=== PATIENT | female | born 1995 | race Two or more races ===

== ENCOUNTER 2024-04-07 10:55 | Observation (INO) | payer BC ==
[~2024-04-07] VITALS: Ht 152.4 cm; Wt 72.6 kg
[2024-04-07 11:53] LABS: Fern Testing Negative
[2024-04-07 12:16] LABS: Urine Bacteria FEW /hpf (None Seen); Urine Blood Negative /uL (Negative); Urine Clarity Turbid (Clear); Urine Color Yellow (Yellow); Urine Hyaline Cast FEW /lpf (0 - 2); Urine Mucus FEW (None Seen); Urine Protein, UAD 1+ (Negative); Urine Specific Gravity 1.024 (1.001-1.035); Urine Urobilinogen 2 mg/dL (Negative); Urine WBC 7 /hpf (0 - 5); Urine pH 6.5 (5.0-9.0)
[2024-04-07 12:45] LABS: Vaginal Trichomonas Not Present
[2024-04-07 12:46] LABS: Vaginal Bacteria None Seen; Vaginal Clue Cells None Seen; Vaginal Epithelial Cells None Seen
[2024-04-07] MEDS ORDERED: MICO1KIT6 VA (13:16)
== END 2024-04-07 13:25 | disposition home or self-care (01) ==
LOC: LDRP 10:55 → UNDOADMOB 10:55 → LDRP 11:08 → UNDODISOB 13:25
PROVIDERS: ADMIT Obstetrics & Gynecology; ATTEND Obstetrics & Gynecology
DX: O98.813 Other maternal infectious and parasitic diseases complicating pregnancy, third trimester (principal); B37.31 Acute candidiasis of vulva and vagina; O42.913 Preterm premature rupture of membranes, unspecified as to length of time between rupture and onset of labor, third trimester; O26.893 Other specified pregnancy related conditions, third trimester; N89.8 Other specified noninflammatory disorders of vagina; Z3A.36 36 weeks gestation of pregnancy; Z88.0 Allergy status to penicillin
CPT/HCPCS: 59025; 81001; 87210; 94760; G0378; Q0114

== ENCOUNTER 2024-04-20 11:52 | Observation (INO) | payer BC ==
[~2024-04-20 11:52] MED LIST: MICO1KIT6 VA
[2024-04-20] MEDS ORDERED: PREN1TAB71 OR (12:06)
[2024-04-20 13:37] LABS: Fern Testing Negative
== END 2024-04-20 14:19 | disposition home or self-care (01) ==
LOC: LDRP 11:52
PROVIDERS: ADMIT Obstetrics & Gynecology; ATTEND Obstetrics & Gynecology
DX: O36.8330 Maternal care for abnormalities of the fetal heart rate or rhythm, third trimester, not applicable or unspecified (principal); Z3A.38 38 weeks gestation of pregnancy; Z79.899 Other long term (current) drug therapy
CPT/HCPCS: 59025; 81002; 84112; G0378; Q0114

== ENCOUNTER 2024-04-28 00:07 | Inpatient (IN) | payer BC, MEDICAID ==
[~2024-04-28] VITALS: Ht 152.4 cm; Wt 81.6 kg
[~2024-04-28 00:07] MED LIST changes: +PREN1TAB71 OR
[2024-04-28 01:47] LABS: Fern Testing Negative
[2024-04-28] MEDS ORDERED: NALBUPHINE HCL 10 MG/1ml INJECTION IV PRN (02:15)
[2024-04-28] MEDS ORDERED: LIDOCAINE 2%HCL (LOCAL ANESTH.) INJ 20ML MDV IJ PRN (02:15)
[2024-04-28] MEDS ORDERED: NALBUPHINE HCL 10 MG/1ml INJECTION IM PRN (02:15)
[2024-04-28] MEDS: LACTATED RINGER'S 1,000 ML IV SCH (02:15)
[2024-04-28] MEDS: CLINDAMYCIN 900MG IV 50 ML IV SCH (03:17)
[2024-04-28] MEDS: PHISODERM TOP SOLN 240ML BTL TOP PRN (03:22)
[2024-04-28] MEDS: WITCH HAZEL-GLYCERIN PAD TOP PRN (03:23)
[2024-04-28] MEDS: DERMOPLAST 60ML BOTTLE TOP PRN (03:23)
[2024-04-28] MEDS: miSOPROStol 50 MCG per PRE-CUT 1/2 TAB PO PRN (04:18)
[2024-04-28 04:23] LABS: Alanine Aminotransferase 22 U/L (7-40); Alkaline Phosphatase 195 U/L (46-116); Anion Gap 9 (5-15); Aspartate Aminotransferase 14 U/L (13-40); Calcium 9.2 mg/dL (8.7-10.4); Carbon Dioxide 22 mmol/L (20-31); Chloride 107 mmol/L (98-107); Glucose 83 mg/dL (74-106); Potassium 3.8 mmol/L (3.5-5.1); Sodium 138 mmol/L (136-145)
[2024-04-28 04:24] LABS: Bilirubin, Total 0.8 mg/dL (0.2-1.0); Total Protein 6.3 g/dL (5.7-8.2)
[2024-04-28 04:31] LABS: BUN/Creatinine Ratio 8.2 (10.0-20.0); Blood Urea Nitrogen < 5 mg/dL (9-23)
[2024-04-28 04:34] LABS: Basophils # (auto) 0 10 ^3/uL (0-0.2); Eosinophils # (auto) 0.1 10 ^3/uL (0-0.8); Eosinophils % (auto) 0.6 % (0.0-7.0); Monocytes # (auto) 0.5 10 ^3/uL (0-1.3); Neutrophils # (auto) 8.1 10 ^3/uL (1.6-8.6); Neutrophils % (auto) 75.5 % (37.0-80.0); Red Blood Cells 3.74 10^6/uL (4.0-5.20); White Blood Cell 10.7 10^3/uL (4.4-10.8)
[2024-04-28 04:36] LABS: Basophils % (auto) 0.3 % (0.0-2.0); Hematocrit 29.2 % (36.0-46.0); Hemoglobin 9.6 g/dL (12.2-16.2); Mean Corpuscular Hemoglobin 25.7 pg (28.0-32.0); Monocytes % (auto) 4.6 % (0.0-12.0); Platelet Count (auto) 255 10^3/uL (140-450); Red Cell Distribution Width 16.2 % (11.8-14.3)
[2024-04-28 04:59] LABS: INR 0.92 (0.9-1.15); Partial Thromboplastin Time 25.6 SEC (24.5-34.5); Prothrombin Time 9.8 sec (9.3-11.8)
[2024-04-28] MEDS: ROPIVACAINE HCL 200 ML ONE (07:18)
[2024-04-28 07:27] LABS: Urine Bacteria None Seen /hpf (None Seen)
[2024-04-28 07:59] LABS: Urine Blood Negative /uL (Negative); Urine Clarity Clear (Clear); Urine Color Light-Yellow (Yellow); Urine Protein, UAD Negative (Negative); Urine Specific Gravity 1.013 (1.001-1.035); Urine Urobilinogen Normal (Negative); Urine WBC 4 /hpf (0 - 5); Urine pH 6.5 (5.0-9.0)
[2024-04-28] MEDS ORDERED: MINERAL OIL TOPICAL 10ml TOP ONE (08:09)
[2024-04-28 08:13] LABS: Amphetamine Screen, Urine Neg (NEGATIVE); Barbiturate Scree,Urine Neg (NEGATIVE); Benzodiazephine Screen, Urine Neg (NEGATIVE); Cannabinoid Screen, Urine Neg (NEGATIVE); Cocaine Screen, Urine Neg (NEGATIVE); Opiate Scree,Urine Neg (NEGATIVE); Phencyclidine Screen, Urine Neg (NEGATIVE)
[2024-04-28] MEDS ORDERED: ONDANSETRON ODT 4 MG TAB PO PRN (09:30)
[2024-04-28] MEDS: ePHEDrine SULFATE 50 MG/ML AMP IV ONE (11:00)
[2024-04-28] MEDS: IBUPROFEN 600 MG TAB PO PRN (11:28)
[2024-04-28 15:00] VITALS: BP 94/63; PULSE 108; RESP 18; TEMP 98.9; O2SAT 98
[2024-04-28] MEDS: ACETAMINOPHEN 325 MG TAB PO PRN (16:56)
[2024-04-28 19:00] VITALS: BP 90/61; PULSE 104; RESP 20; TEMP 98.3; O2SAT 97
[2024-04-28] MEDS: METHYLERGONOVINE MALEATE 0.2 MG/ML AMP IM ONE (19:11)
[2024-04-28] MEDS: LACT. RINGERS/OXYTOCIN 20UNITS 500 ML IV ONE ×2 (19:12)
[2024-04-28] MEDS: DOCUSATE SOD 100 MG CAP PO SCH (22:29)
[2024-04-28 23:00] VITALS: BP 97/59; PULSE 94; RESP 18; TEMP 97.8; O2SAT 97
[2024-04-28] MEDS ORDERED: IBU600T PO (23:18)
[2024-04-28] MEDS ORDERED: DOCU-265 PO (23:18)
[2024-04-28] MEDS ORDERED: FERRCAP PO (23:18)
[2024-04-28] MEDS ORDERED: PREN1TAB71 PO (23:18)
[2024-04-29 03:00] VITALS: BP 101/63; PULSE 97; RESP 18; TEMP 97.8; O2SAT 98
[2024-04-29 07:00] VITALS: BP 92/64; PULSE 95; PULSE 97; RESP 18; TEMP 97.5; O2SAT 98
[2024-04-29] MEDS ORDERED: PRENATAL VITAMIN TAB PO ONE (07:00)
[2024-04-29 07:38] LABS: Basophils # (auto) 0 10 ^3/uL (0-0.2); Basophils % (auto) 0.2 % (0.0-2.0); Eosinophils # (auto) 0.1 10 ^3/uL (0-0.8); Hematocrit 24.2 % (36.0-46.0); Hemoglobin 7.9 g/dL (12.2-16.2); Lymphocytes # (auto) 1.9 10 ^3/uL (0.4-5.4); Mean Corpuscular Hemoglobin 25.2 pg (28.0-32.0); Mean Corpuscular Hgb Conc. 32.7 g/dL (32.0-36.0); Mean Corpuscular Volume 77.2 fL (80.0-100.0); Monocytes # (auto) 0.8 10 ^3/uL (0-1.3); Monocytes % (auto) 6.1 % (0.0-12.0); Neutrophils % (auto) 77.7 % (37.0-80.0); Platelet Count (auto) 219 10^3/uL (140-450); Red Blood Cells 3.13 10^6/uL (4.0-5.20); Red Cell Distribution Width 16.2 % (11.8-14.3); White Blood Cell 12.9 10^3/uL (4.4-10.8)
[2024-04-29 08:06] LABS: RPR Non Reactive (Non Reactive)
[2024-04-29 11:00] VITALS: BP 98/66; PULSE 97; RESP 18; TEMP 97.7; O2SAT 98
[2024-04-29 15:00] VITALS: BP 94/51; PULSE 91; RESP 18; TEMP 97.9; O2SAT 98
[2024-04-29 19:20] VITALS: BP 99/57; PULSE 85; RESP 16; TEMP 97.9; O2SAT 97
[2024-04-29] MEDS: FERROUS SULFATE 325mg EC TAB PO ONE (21:18)
[2024-04-29 23:00] VITALS: BP 122/79; PULSE 91; RESP 18; TEMP 97.8; O2SAT 97
[2024-04-30 03:15] VITALS: BP 96/51; PULSE 74; RESP 16; TEMP 97.7; O2SAT 97
[2024-04-30 07:20] VITALS: BP 92/56; PULSE 95; RESP 16; TEMP 97.8; O2SAT 97
[2024-04-30 11:00] VITALS: BP 101/58; PULSE 96; RESP 16; TEMP 98.4; O2SAT 96
== END 2024-04-30 14:45 | disposition home or self-care (01) | DRG 807 ==
LOC: EDLOC 00:07 → LDRP 00:07 → NUR 00:07 → UNDOADMOB 00:07 → LDRP 01:52 → OBSVTOIN 01:52 → NUR 01:52 → LDRP 01:53
PROVIDERS: ADMIT Obstetrics & Gynecology; ATTEND Obstetrics & Gynecology
PROC: 10E0XZZ Delivery of Products of Conception, External Approach (ICD-10-PCS; principal; 2024-04-28)
PROC: 3E0R3BZ Introduction of Anesthetic Agent into Spinal Canal, Percutaneous Approach (ICD-10-PCS; 2024-04-28)
PROC: 00HU33Z Insertion of Infusion Device into Spinal Canal, Percutaneous Approach (ICD-10-PCS; 2024-04-28)
DX: O90.81 Anemia of the puerperium (principal); Z37.0 Single live birth; Z3A.39 39 weeks gestation of pregnancy
CPT/HCPCS: 36415; 59025; 59409; 76815; 80053; 80307; 81001; 81002; 84112; 85025; 85610; 85730; 86592; 86803; 86850; 86900; 86901; 94760; 94762; 96360; 96361; 96365; 96366; 96372; G0378; J2590; J3490

== ENCOUNTER 2024-06-23 19:59 | Emergency (ER) | payer BC, MEDICAID ==
[~2024-06-23] VITALS: Ht 152.4 cm; Wt 68.2 kg
[~2024-06-23 19:59] MED LIST changes: +DOCU-265 PO; +FERRCAP PO; +IBU600T PO; -MICO1KIT6 VA; -PREN1TAB71 OR; +PREN1TAB71 PO
--- NOTE | 2024-06-23 20:12 | ED.PDOC ---
History of Present Illness HPI Comments 28-year-old female with no PMHx or PSHx presents with a chief complaint of abdominal pain x 1 month s/p giving x 2 months ago with associated vaginal discharge, burning, nausea, and back pain. Patient states that her pain is localized to her suprapubic and vaginal area, describes as cramping, and states that it has been present for the past x 1 month. Patient denies any injuries or trauma prior to onset of symptoms beginning. Patient denies any vomiting, diarrhea, or abnormal vaginal bleeding. No other symptoms or modifying factors present at this time. Time Seen by MD: 20:04 Reviewed Notes: Medications, Allergies Allergies: Coded Allergies: Amoxicillin (Verified Allergy, Unknown, 04/07/24) Penicillins (Verified Allergy, Unknown, 04/07/24) Home Meds Active Scripts Nitrofurantoin Monohydrate Mac (Macrobid) 100 Mg Cap, 100 MG PO BID for 5 Days, #9 CAP Prov:POONAM SR MD 06/23/24 Ferrous Fumarate W/ B12-Vit C- (Tricon) Cap, 1 CAP PO DAILY for 90 Days, #90 CAP 2 Refills Prov:KHAIMJRONYJ CARLOS [facility] 04/28/24 Ibuprofen Micronized (MOTRIN TABLET) 600 Mg Tb, 600 MG PO Q6HP PRN for 20 Days, #80 TAB Prov:MELISSA RUVALCABA [facility] 04/28/24 Docusate Sodium (Docusate Sodium) 100 Mg Cap, 200 MG PO HS PRN for 30 Days, #60 CAP 2 Refills Prov:MELISSA RUVALCABA [facility] 04/28/24 Vit W/ Ferrous Fumara (PNV PLUS MULTIVI) Plus Tab, 1 TAB PO DAILY for 90 Days, #90 TAB 3 Refills Prov:MELISSA RUVALCABA [facility] 04/28/24 Information Source: Patient Mode of Arrival: Ambulatory Severity: Moderate Timing: Months Duration: Since onset Prehospital treatment: None Vital Signs Vital Signs Date Time Temp Pulse Resp B/P (MAP) Pulse Ox O2 Delivery O2 Flow Rate FiO2 06/23/24 23:42 98.7 06/23/24 22:43 80 16 97 Room Air* 0 21 06/23/24 22:43 137/87 (104) Physical Exam General: Awake, alert and oriented. No acute distress. Skin: Skin in warm, dry and intact. Appropriate color for ethnicity. Nailbeds pink with no cyanosis. HEENT: The head is normocephalic and atraumatic. Conjunctivae are clear without exudates or hemorrhage. Sclera is non-icteric. EOM are intact. No signs of nystagmus. Eyelids are normal in appearance without swelling or lesions. Oral mucosa is pink and moist Neck: The neck is supple with normal range of motion. No JVD. Cardiac: Heart rate and rhythm are normal. No murmurs, gallops, or rubs are auscultated. Respiratory: No signs of respiratory distress. Lung sounds are clear in all lobes bilaterally without rales, ronchi, or wheezes. Abdominal: Abdomen is soft, positive suprapubic tendernessr without distention. No guarding or rigidity Bowel sounds are present and normoactive in all four quadrants. Extremities: Upper and lower extremities are atraumatic in appearance without deformity or edema. Neurological: The patient is awake, alert and oriented to person, place, and time with normal speech. Speech is clear. There is no facial asymmetry. Psychiatric: Appropriate mood and affect. Good judgement and insight. No visual or auditory hallucinations. Review of Systems: REVIEW OF SYSTEMS: No fever, no chills, or fatigue HEENT: No sore throat, no earache, no congestion, no neck pain. Cardiac: No chest pain. No palpitations. Lungs: No shortness of breath, no cough. GI: Positive nausea, positive vomiting, positive diarrhea, no constipation, positive abdominal pain, lower pelvic pain. No blood in stool or vomitus : Positive dysuria, frequency, or urgency. No hematuria. Positive vaginal discharge, yellowish. No odor. Musculoskeletal: Positive low back pain. No joint pain , no joint swelling, no extremity edema. Skin: No rash, no itching. Neuro: No headache, no dizziness, no weakness Past Medical History PAST MEDICAL HISTORY: Denies Surgical History: Denies all surgeries CLIENT APPLICATION SUPPORT SPECIALIST History: Denies all CLIENT APPLICATION SUPPORT SPECIALIST Hx Family History Family History: Reviewed,noncontributory to illness Social History Smoker: Non-Smoker Alcohol: Denies ETOH Use Drugs: Denies Drug Use Lives In: Home Was a procedure done? Was a procedure done?: No Differential Dx Considerations may include: Differential diagnoses considered include: Abdominal aortic aneurysm, AK, esophageal rupture, intestinal obstruction, mesenteric ischemia, perforated viscus or solid organ rupture, CHF with hepatomegaly, pneumonia, abscess, appendicitis, biliary disease, diverticulitis, gastritis, gastroenteritis, hepatitis, hernia, inflammatory bowel disease, pancreatitis, peptic ulcer disease, ureteral colic, constipation, GERD, irritable syndrome, abdominal wall pain, nonspecific abdominal pain, herpes zoster. Also ruptured ectopic , ovarian torsion/cyst, tubo-ovarian abscess, PID, endometriosis, mittleschmerz. X-Ray, Labs, Meds, VS Vital Signs Date Time Temp Pulse Resp B/P (MAP) Pulse Ox O2 Delivery O2 Flow Rate FiO2 06/23/24 23:42 98.7 06/23/24 22:43 80 16 97 Room Air* 0 21 06/23/24 22:43 97.9 80 16 137/87 (104) 97 97.9 06/23/24 21:05 98.1 78 18 107/77 (87) 97 Lab Test 06/23/24 21:33 06/23/24 21:31 06/23/24 20:49 Range/Units Chlamydia trachomatis (DONY) Pending Neisseria gonorrhoeae (DONY) Pending Urine Color Light-yellow Yellow Urine Clarity Clear Clear Urine pH 6.5 5.0-9.0 Urine Specific [place] 1.029 1.001-1.035 Urine Protein Negative Negative Urine Ketones Negative Negative Urine Blood Negative Negative /uL Urine Nitrite Negative Negative Urine Bilirubin Negative Negative Urine Urobilinogen Normal Negative mg/dL Urine Leukocyte Esterase 1+ Negative /uL Urine RBC 1 0 - 4 /hpf Urine WBC 8 0 - 5 /hpf Urine Squamous Epithelial Cells Few <5 /hpf Urine Bacteria Few H None Seen /hpf Urine Mucus Few None Seen Urine Glucose Normal Normal mg/dL White Blood Count 6.6 4.4-10.8 10^3/uL Red Blood Count 4.61 4.0-5.20 10^6/uL Hemoglobin 10.8 L 12.2-16.2 g/dL Hematocrit 34.4 L 36.0-46.0 % Mean Corpuscular Volume 74.7 L 80.0-100.0 fL Mean Corpuscular Hemoglobin 23.4 L 28.0-32.0 pg Mean Corpuscular Hemoglobin Concent 31.3 L 32.0-36.0 g/dL Red Cell Distribution Width 17.9 H 11.8-14.3 % Platelet Count 293 140-450 10^3/uL Mean Platelet Volume 8.4 6.9-10.8 fL Neutrophils (%) (Auto) 55.8 37.0-80.0 % Lymphocytes (%) (Auto) 33.8 10.0-50.0 % Monocytes (%) (Auto) 6.2 0.0-12.0 % Eosinophils (%) (Auto) 3.8 0.0-7.0 % Basophils (%) (Auto) 0.4 0.0-2.0 % Neutrophils # (Auto) 3.7 1.6-8.6 10 ^3/uL Lymphocytes # (Auto) 2.2 0.4-5.4 10 ^3/uL Monocytes # (Auto) 0.4 0-1.3 10 ^3/uL Eosinophils # (Auto) 0.2 0-0.8 10 ^3/uL Basophils # (Auto) 0 0-0.2 10 ^3/uL Nucleated Red Blood Cells 0.1 % Sodium Level 142 136-145 mmol/L Potassium Level 3.7 3.5-5.1 mmol/L Chloride Level 106 98-107 mmol/L Carbon Dioxide Level 29 20-31 mmol/L Anion Gap 7 5-15 Blood Urea Nitrogen 14 9-23 mg/dL Creatinine 0.80 0.550-1.02 mg/dL Glomerular Filtration Rate Calc 102 >90 mL/min BUN/Creatinine Ratio 17.5 10.0-20.0 Serum Glucose 85 74-106 mg/dL Calcium Level 10.3 8.7-10.4 mg/dL Total Bilirubin 0.7 0.2-1.0 mg/dL Aspartate Amino Transferase (AST) 64 H 13-40 U/L Alanine Aminotransferase (ALT) 144 H 7-40 U/L Alkaline Phosphatase 139 H 46-116 U/L C-Reactive Protein High Sensitivity 0.17 <1.0 mg/dL Total Protein 7.3 5.7-8.2 g/dL Albumin 4.7 3.2-4.8 g/dL Lipase 45 12-53 U/L Beta HCG, Quantitative 1.6 1.5-4.2 mIU/mL Current Medications Medications (Trade) Dose Ordered Sig/Godwin Route Start Time Stop Time Status Last Admin Ondansetron HCl (Zofran Po) 4 mg ONCE ONCE PO 06/23/24 20:15 06/23/24 20:16 DC 06/23/24 23:44 Acetaminophen (Tylenol Tablet) 1,000 mg ONCE ONCE PO 06/23/24 20:15 06/23/24 20:16 DC 06/23/24 23:42 Fluconazole (Diflucan Tablet) 200 mg ONCE ONCE PO 06/23/24 23:45 06/23/24 23:46 DC 06/23/24 23:48 Nitrofurantoin Macrocrystals (Macrobid) 100 mg ONCE ONCE PO 06/23/24 23:45 06/23/24 23:46 DC 06/23/24 23:48 Time of 1ST Reevaluation: 20:34 Reevaluation 1ST: Unchanged Patient Education/Counseling: Diagnosis, Treatment, Prognosis Family Education/Counseling: No Family Present Departure 1 Departure Time of Disposition: 23:39 Impression: Primary Impression: Abdominal pain Additional Impressions: UTI (urinary tract infection) Elevated liver enzymes Hepatic steatosis Disposition: HOME / SELF CARE / HOMELESS Condition: Good Additional Instructions: ED DISCHARGE INSTRUCTIONS Instructions: Please read all instructions provided in this packet carefully. Although you have been discharged from the Emergency Department, this does not mean that you have a "clean bill of health". No definitive diagnosis for your symptoms has been made today. It is possible that you are in the process of developing a serious illness. This is why you must return to the ED without fail if any new or worsening symptoms (especially if your symptoms include chest p ain, trouble breathing, abdominal pain, fever, headache, confusion, trouble seeing, or trouble walking) It is also very important that you see a primary care doctor within the next 3-5 days to follow up. Follow up with your primary provider about the following abnormal findings. Your blood work showed elevated Liver function tests today. Your CT scan showed IMPRESSION: 1. Minimal wall thickening of the distal sigmoid colon may reflect underdistention or mild colitis. 2. Hepatic steatosis. If you are unable to get an appointment, return to the ED for re-evaluation. Abdominal Pain: Care Instructions Overview Abdominal pain has many possible causes. Some aren't serious and get better on their own in a few days. Others need more testing and treatment. If your pain continues or gets worse, you need to be rechecked and may need more tests to find out what is wrong. You may need surgery to correct the problem. Don't ignore new symptoms, such as fever, nausea and vomiting, urination problems, pain that gets worse, and dizziness. These may be signs of a more serious problem. If you are not getting better, you may need more tests or treatment. The doctor has checked you carefully, but problems can develop later. If you notice any problems or new symptoms, get medical treatment right away. Follow-up care is a keller part of your treatment and safety. Be sure to make and go to all appointments, and call your doctor if you are having problems. It's also a good idea to know your test results and keep a list of the medicines you take. How can you care for yourself at home? Rest until you feel better. To prevent dehydration, drink plenty of fluids. Choose water and other clear liquids until you feel better. If you have kidney, heart, or liver disease and have to limit fluids, talk with your doctor before you increase the amount of fluids you drink. When you feel like eating, start with small amounts. Do not have alcohol, caffeine, or spicy, hot, or high-fat foods for a day or two. Avoid anti-inflammatory medicines such as aspirin, ibuprofen (Advil, Motrin), and naproxen (Aleve). These can cause stomach upset. Talk to your doctor if you take daily aspirin for another health problem. When should you call for help? Call 911 anytime you think you may need emergency care. For example, call if: You passed out (lost consciousness). You pass maroon or very bloody stools. You vomit blood or what looks like coffee grounds. You have severe belly pain. Call your doctor now or seek immediate medical care if: Your pain gets worse, especially if it becomes focused in one area of your belly. You have a new or higher fever. Your stools are black and look like tar, or they have streaks of blood. You have unexpected vaginal bleeding. You have symptoms of a urinary tract infection. These may include: Pain when you urinate. Urinating more often than usual. Blood in your urine. You are dizzy or lightheaded, or you feel like you may faint. Watch closely for changes in your health, and be sure to contact your doctor if: You are not getting better as expected. Credits for Abdominal Pain: Care Instructions Current as of: May 09, 2023 Author: [employer] Clinical Review Board All [employer] education is reviewed by a team that includes physicians, nurses, advanced practitioners, registered dieticians, and other healthcare professionals. LIVER FUNCTION TESTS EDUCATION: What does it mean to have elevated liver enzymes? If you have high levels of liver enzymes in your blood, you have elevated liver enzymes. High liver enzyme levels may be temporary, or they may be a sign of a medical condition like hepatitis or liver disease. Certain medications can also cause elevated liver enzymes. What are liver enzymes? Liver enzymes are proteins that speed up chemical reactions in your body. These chemical reactions include producing bile and substances that help your blood clot, breaking down food and toxins, and fighting infection. Common liver enzymes include: Alkaline phosphatase (ALP). Alanine transaminase (ALT). Aspartate transaminase (AST). Gamma-glutamyl transferase (GGT). If your liver is injured, it releases enzymes into your bloodstream (most commo nly ALT or AST). Why does a healthcare provider check liver enzymes? Your healthcare provider may check your liver enzyme levels with a liver function test (LFT) or liver panel. A liver function test is a type of blood test. Your provider may order an LFT during a regular checkup if youre at risk for liver injury or disease or if you have symptoms of liver damage. Possible Causes What causes elevated liver enzymes? Liver diseases, medical conditions, medications and infections can cause elevated liver enzymes. What are the risk factors for elevated liver enzymes? Factors that put you at risk for elevated liver enzymes include: Alcohol use. Certain medications, herbs and vitamin supplements. Diabetes. Family history of liver disease. Hepatitis or exposure to hepatitis. What are the symptoms of elevated liver enzymes? Most people with elevated liver enzymes dont have symptoms. If liver damage is the cause of elevated liver enzymes, you may have symptoms such as: Abdominal (stomach) pain. Dark urine (pee). Fatigue (feeling tired). Itching. Jaundice (yellowing of your skin or eyes). Light-colored stools (poop). Loss of appetite. Nausea and vomiting. Care and Treatment Elevated liver enzymes have a variety of causes, including liver disease and medication. Elevated liver enzymes may also be temporary. If your blood test shows high levels of liver enzymes, talk with your provider. Theyll work to figure out the cause. (From [facility]) e-Prescriptions Nitrofurantoin Monohydrate Mac (Macrobid) 100 Mg Cap 100 MG PO BID for 5 Days, #9 CAP Prov: POONAM SR MD 06/23/24 Comments Cgraez[age]-old female who presents to the emergency department with lower abdominal pain, nausea, vomiting, diarrhea. She is two months . Imaging shows only some hepatic steatosis, trace free fluid on ultrasound. Patient well-appearing, nontoxic. Advised prompt follow-up with PCP, return to the ED with any new, worsening or concerning symptoms. I reviewed the following notes from the pt's past medical encounters: Most recent hospitalization for spontaneous rupture of membranes in April of this year. The following tests were ordered, and results were reviewed by me: (labs, pelvic ultrasound, urine studies Additional information was gathered from interviewing the following independent historians: N/A I reviewed and agreed with the following test results read by other providers: Agree with radiologist's interpretation I discussed treatments and results with medical personnel and: N/A Prescription drug management. Critical Care Note Critical Care Time?: No Stability Stability form required: No I personally scribed for POONAM SR MD ([email or web address]) on 06/23/24 at 20:12. Electronically submitted by Harley Locke ([email or web address]). POONAM SR MD Jun 23, 2024 20:12
--- NOTE | 2024-06-23 20:55 | DVH ---
INDICATION: Pelvic pain, vaginal discharge, low back pain, TECHNIQUE: Multiple real-time grayscale transabdominal sonographic images along with color and duplex Doppler of the uterus and ovaries were obtained. COMPARISON: None FINDINGS: The uterus measures 7.4 x 6.0 x 5.1 cm. The endometrial stripe measures 0.5cm. Right ovary measures 2.4 x 2.4 x 2.7 cm with normal Doppler color flow. Simple anechoic cyst measures up to 1.0 cm. Left ovary measures 2.6 x 1.6 x 1.9 cm with normal Doppler color flow Trace free fluid within endometrium. IMPRESSION: 1. No acute findings identified.
[2024-06-23 21:11] LABS: Basophils # (auto) 0 10 ^3/uL (0-0.2); Eosinophils # (auto) 0.2 10 ^3/uL (0-0.8); Hemoglobin 10.8 g/dL (12.2-16.2); Lymphocytes # (auto) 2.2 10 ^3/uL (0.4-5.4); Mean Corpuscular Hemoglobin 23.4 pg (28.0-32.0); Monocytes # (auto) 0.4 10 ^3/uL (0-1.3); Monocytes % (auto) 6.2 % (0.0-12.0); Neutrophils # (auto) 3.7 10 ^3/uL (1.6-8.6); Nucleated Red Blood Cells % 0.1 %; Platelet Count (auto) 293 10^3/uL (140-450); Red Blood Cells 4.61 10^6/uL (4.0-5.20); White Blood Cell 6.6 10^3/uL (4.4-10.8)
[2024-06-23 21:13] LABS: Basophils % (auto) 0.4 % (0.0-2.0); Eosinophils % (auto) 3.8 % (0.0-7.0); Hematocrit 34.4 % (36.0-46.0); Lymphocytes % (auto) 33.8 % (10.0-50.0); Mean Corpuscular Hgb Conc. 31.3 g/dL (32.0-36.0); Mean Corpuscular Volume 74.7 fL (80.0-100.0); Neutrophils % (auto) 55.8 % (37.0-80.0); Red Cell Distribution Width 17.9 % (11.8-14.3)
[2024-06-23 21:45] LABS: Albumin 4.7 g/dL (3.2-4.8); Anion Gap 7 (5-15); BUN/Creatinine Ratio 17.5 (10.0-20.0); Bilirubin, Total 0.7 mg/dL (0.2-1.0); Blood Urea Nitrogen 14 mg/dL (9-23); CRP High Sensitivity 0.17 mg/dL (<1.0); Calcium 10.3 mg/dL (8.7-10.4); Carbon Dioxide 29 mmol/L (20-31); Chloride 106 mmol/L (98-107); Glucose 85 mg/dL (74-106); Potassium 3.7 mmol/L (3.5-5.1); Sodium 142 mmol/L (136-145); Total Protein 7.3 g/dL (5.7-8.2)
[2024-06-23 21:46] LABS: Alanine Aminotransferase 144 U/L (7-40); Alkaline Phosphatase 139 U/L (46-116); Aspartate Aminotransferase 64 U/L (13-40)
[2024-06-23 21:56] LABS: Lipase 45 U/L (12-53)
[2024-06-23 22:32] LABS: Urine Bacteria FEW /hpf (None Seen); Urine Blood Negative /uL (Negative); Urine Clarity Clear (Clear); Urine Color Light-Yellow (Yellow); Urine Mucus FEW (None Seen); Urine Protein, UAD Negative (Negative); Urine Specific Gravity 1.029 (1.001-1.035); Urine Urobilinogen Normal (Negative); Urine WBC 8 /hpf (0 - 5); Urine pH 6.5 (5.0-9.0)
[2024-06-23] MEDS: IOHEXOL 300 MG/ML 100ML BOTTLE IJ ONE (22:34)
[2024-06-23 22:43] VITALS: PULSE 80; RESP 16; O2SAT 97
--- NOTE | 2024-06-23 22:55 | DVH ---
Exam: CT CT AB PEL WITH IV CON ONLY History: abdominal pain elevated lfts COMPARISON: None Technique: Multidetector spiral CT of the abdomen and pelvis was performed from lung bases to pubic s ymphysis. Intravenous contrast was administered during this examination. Portal venous imaging was obtained. Axial, coronal and sagittal multiplanar reformats were performed by the technologist on a separate workstation. Radiation Dose : 1. Abdomen/Pelvis: CTDIvol 8.7mGy, DLP 478.64 mGy*cm. CONTRAST: Type of contrast: Omnipaque 300 Contrast injected: 100 ml Findings: Lung Bases: No acute or significant lung base finding. Normal heart size. No pleural or pericardial effusion. Diffuse steatosis. Liver: The liver is normal in size. No focal lesions. Normal hepatic vascular enhancement. Gallbladder and Biliary Tree: Unremarkable Spleen: Unremarkable Pancreas: The pancreas is normal in appearance without focal lesions or abnormal enhancement. Adrenal Glands: Unremarkable Kidneys: No hydronephrosis. Bladder: Unremarkable Bowel: The stomach is grossly normal in appearance. Minimal wall thickening of the distal sigmoid col on may reflect underdistention or mild colitis. The appendix is not visualized; however, no secondar y findings of acute appendicitis identified. Ascites: Absent Lymphadenopathy: No mesenteric, retroperitoneal or periportal lymphadenopathy. Abdominal Wall and Mesentery: Unremarkable. Vasculature: The visualized abdominal aorta is normal in size and caliber. Abdominal and pelvic vess els demonstrate normal enhancement. Pelvic Organs: Unremarkable Musculoskeletal: No aggressive focal bony lesions, acute fractures or dislocation. IMPRESSION: 1. Minimal wall thickening of the distal sigmoid colon may reflect underdistention or mild colitis. 2. Hepatic steatosis. Radiation optimization: All CT scans at this facility use at least one of these dose optimization mary hniques: automated exposure control mA and/or kV adjustment per patient size (includes targeted exam s where dose is matched to clinical indication) or iterative reconstruction.
[2024-06-23 23:42] VITALS: TEMP 98.7
[2024-06-23] MEDS: ACETAMINOPHEN 500 MG TAB or CAP PO ONE (23:42)
[2024-06-23] MEDS: ONDANSETRON ODT 4 MG TAB PO ONE (23:44)
[2024-06-23] MEDS: NITROFURANTOIN 100 mg CAP PO ONE (23:48)
[2024-06-23] MEDS: FLUCONAZOLE 100 MG TAB PO ONE (23:48)
[2024-06-23] MEDS ORDERED: NITR-87 PO (23:48)
[2024-06-24] VITALS: BP 150/96; PULSE 63; RESP 12; O2SAT 98
[2024-06-25 21:06] LABS: Chlamydia Trachomatis, NAA Negative (Negative); Neisseria gonorrhoeae, NAA Negative (Negative)
== END 2024-06-24 00:04 | disposition home or self-care (01) ==
LOC: ER 19:59
DX: N39.0 Urinary tract infection, site not specified (principal); R10.2 Pelvic and perineal pain; K76.0 Fatty (change of) liver, not elsewhere classified; Z79.899 Other long term (current) drug therapy; Z88.0 Allergy status to penicillin
CPT/HCPCS: 36415; 74177; 76830; 76856; 80053; 81001; 83690; 84702; 85025; 86141; 87491; 87591; 99285; Q0162; Q9967